=== PATIENT | female | born 1945 | race Caucasian/White ===

== ENCOUNTER 2022-09-26 18:56 | Emergency (ER) | payer MEDICARE ==
[2022-09-26] MEDS ORDERED: ACETAMINOPHEN 325 MG TABLET PO STA (19:10)
--- NOTE | 2022-09-26 19:21 | ED Fall/Injury ---
General Chief Complaint: Trauma-Non Activation Stated Complaint: FELL,R SIDE HIP,HEAD INJ Nursing Triage Note: Pt states she fell backward off her steps at home and hit the back of her head. Pt denies loc. Pt complaining of right upper leg pain Source: patient, family History of Present Illness Date Seen by Provider: September 26, 2022 Time Seen by Provider: 19:00 Initial Comments 77-year-old female presenting with her children to the emergency department. She states that around 1700 she had been carrying groceries up her deck stairs when she fell backward. She is lost her balance and she fell and hit the back of her head and her right thigh. She was complaining of pain to the back of her head as well as the right thigh. She denies losing consciousness with the fall. She states that she was stunned and had to lay on the ground for a few seconds until she could get her bearings. Then she crawled up the steps and then walked into the house. She did have nausea when she first fell. She denies having any nausea now and did not have any vomiting. She denies any change in her vision, numbness or weakness in her arms or legs. She does take Plavix since she has had heart attack and stent placement last year. She follows with Dr. Stanton at [facility] for her cardiology. Occurred: this evening (Around 1700) Severity: moderate Injuries/Pain Location: head (Swelling to the back of her head where she hit it when she fell), lower extremity (Swelling and bruising to the right lateral thigh where she had fallen) Context: lost balance Loss of Consciousness: no loss of consciousness Modifying Factors: Worse With Movement Associated Symptoms (Fall): No Abdominal Pain, No Chest Pain, No Confusion, No Dizziness; Headache (Occiput where she has swelling); No Lightheadedness, No Muscle Spasms; Nausea/Vomiting (Right after the fall), Neck Pain (Complains of chronic neck pain from arthritis and it feels more sore since she had fallen); No Ringing in Ears, No Seizures, No Shortness of Air, No Slurred Speech; Trouble Walking (Due to pain in her right thigh); No Vision Changes Allergies and Home Medications Allergies Coded Allergies: Sulfa (Sulfonamide Antibiotics) (Verified Allergy, Unknown, 09/26/22) Patient Home Medication List Home Medication List Reviewed: Yes Review of Systems Review of Systems Constitutional: No chills, No dizziness, No fever Eyes: Denies Blurred Vision, Denies Vision Changes Ears, Nose, Mouth, Throat: denies ear pain, denies ear discharge, denies nose pain, denies nose discharge, denies epistaxis, denies loose teeth Respiratory: No cough, No short of breath Cardiovascular: no symptoms reported Gastrointestinal: see HPI Genitourinary: No dysuria Musculoskeletal: see HPI Skin: see HPI Psychiatric/Neurological: See HPI Past [id number]-[id number] Hx Patient Social History Tobacco Use?: No Use of E-Cig and/or Vaping dev: No Substance use?: No Alcohol Use?: No Pt feels they are or have been: No Past Medical History Surgery/Hospitalization HX: Coronary artery disease with stent, hypertension, hyperlipidemia, GERD Surgeries: Yes Coronary Stent Cardiac: Yes Coronary Artery Disease, High Cholesterol, Hypertension Physical Exam Vital Signs Vital Signs - First Documented Capillary Refill : Less Than 3 Seconds Height, Weight, BMI Height: '" Weight: lbs. oz. kg; BMI Method: General Appearance: WD/WN, no apparent distress HEENT: PERRL/EOMI, normal ENT inspection, TMs normal, pharynx normal, other (Negative romero sign, negative raccoon sign, no CSF otorrhea, no CSF rhinorrhea, no hemotympanum) Neck: full range of motion, supple, tender lateral Cardiovascular: normal peripheral pulses Respiratory: chest non-tender Gastrointestinal: non tender, soft, no pulsatile mass Rectal: deferred Back: no CVA tenderness, no vertebral tenderness Extremities: normal range of motion, no calf tenderness, normal capillary refill, other (Hematoma to the right lateral thigh with tenderness to palpation.) 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, no motor/sensory deficits, alert, normal mood/affect, oriented x 3 Skin: warm/dry, ecchymosis (Right lateral thigh) Stafford Coma Score Best Eye Response: (4) Open Spontaneously Best Verbal Response: (5) Oriented Best Motor Response: (6) Obeys Commands Johan Total: 15 Progress/Results/Core Measures Results/Orders My Orders Orders - GAYLE NINA MD Ice: Apply To Affected Area (09/26/22 19:10) Femur 2 View Right (09/26/22 19:10) Ct Head/Cervical Spine Wo (09/26/22 19:10) Acetaminophen Tablet/Caplet (Tylenol T (09/26/22 19:10) Vital Signs/I&O 09/26/22 09/26/22 19:01 19:01 Pulse 97 97 Resp 18 18 B/P (MAP) 196/103 (134) 196/103 (134) Pulse Ox 97 97 O2 Delivery Room Air Room Air Blood Pressure Mean: 134 Progress Progress Note #1: Progress Note Potential diagnosis of hematoma to the thigh, occipital scalp hematoma, skull fracture, intracranial hemorrhage, femur fracture, contusion of thigh. Acetaminophen 650 mg p.o. x1 for her complaint of headache. Ice pack to her head and to the right thigh for swelling and bruising. CT scan of the head and cervical spine to evaluate for possible fractures or intracranial hemorrhage. X-ray of the right femur to look for fracture or dislocation. Progress Note #2: Time: 20:00 Progress Note On my personal interpretation and reviewed with the x-rays of the right femur and CT scan of the head and cervical spine I did not appreciate any acute fractures and or intracranial hemorrhage. She has some degenerative changes with arthritis. She had prior hardware from a total knee arthroplasty on the right. Hardware appears intact. 2011 I reviewed the radiologist reports on the CT scan of the head and cervical spine as well as the x-rays of the right femur. They also did not appreciate any acute fractures or intracranial hemorrhage. Patient reports improved pain after Tylenol and with ice packs. Counseled on follow-up and return precautions. Advised she could continue with the Tylenol as needed for pain 650 mg every 4-6 hours. She is due for her evening dose of Coreg so we will have her take that when she gets home. Her blood pressure was a little high here in the emergency department but she does not have any secondary symptoms of high blood pressure such as blurred vision, chest pain, generalized headache, numbness or tingling in her arms or legs. She only was having the localized headache at the site of hematoma on her occiput Diagnostic Imaging Diagonstic Imaging: Xray Plain Films/CT/US/NM/MRI: femur Comments [facility] [place], [place] NAME: KEENAN DORMANSuhas Wheeler [facility] REC#: [id number] PT STATUS: REG ER : 1945 PHYSICIAN: GAYLE NINA MD ADMIT DATE: 09/26/22/ER FS Signed Date of Exam:09/26/22 FEMUR 2 VIEW RIGHT INDICATION: Injured in fall backwards off steps at home, hit back of head. Patient denies loss of consciousness. Patient now has right leg pain. COMPARISONS: None: FINDINGS: AP and lateral views of the right femur show a previous right knee arthroplasty. There is some age-appropriate degenerative joint disease in the right hip. Otherwise, no evidence of acute fracture or acute subluxation seen. IMPRESSION: No fracture or subluxation seen in the right femur. There is some degenerative joint disease probably age-appropriate in the right hip. There is also previous right total knee arthroplasty noted. Dictated by: Dictated on workstation # [id number] Dict: 09/26/221941 Trans: 09/26/221955 [facility] [id number] Interpreted by: CULLEN SELLERS MD Electronically signed by: CULLEN SELLERS MD 09/26/221955 Reviewed: Reviewed by Me (I reviewed the radiologist report at 2011) Diagonstic Imaging: CT Plain Films/CT/US/NM/MRI: c-spine, head Comments [facility] [place] [place] NAME: DIANN DORMAN [facility] REC#: [id number] PT STATUS: REG ER : 1945 PHYSICIAN: GAYLE NINA MD ADMIT DATE: 09/26/22/ER FS Signed Date of Exam:09/26/22 CT HEAD/CERVICAL SPINE WO PROCEDURE: CT head and CT cervical spine without contrast. TECHNIQUE: Multiple contiguous axial images were obtained through the brain and cervical spine without the use of intravenous contrast. Sagittal and coronal reformations through the cervical spine were then performed. Auto Exposure Controls were utilized during the CT exam to meet ALARA standards for radiation dose reduction. INDICATION: Fall, pain. COMPARISON: None available. FINDINGS: Age-appropriate volume loss. No intracranial hemorrhage. No intracranial mass, mass effect, midline shift, herniation, hydrocephalus, or extra-axial fluid collection. Patchy regions of hypodensity are noted within the periventricular and subcortical white matter, most consistent with mild background chronic small vessel white matter ischemic disease. No CT evidence of an acute ischemic infarction. Bilateral ocular lenses are absent. Otherwise, the orbits are unremarkable. Mild background vascular calcifications. Minimal opacification of the left mastoid air cells. Otherwise, the paranasal sinuses are clear. The calvarium and extracalvarial soft tissues are unremarkable. Minimal anterolisthesis of C3 on C4 and C4 on C5 with minimal retrolisthesis of C5 on C6. Alignment of the atlantooccipital joint is well maintained. Significant endplate degenerative changes are present, particularly involving C5, C6, and C7. Severe disc space height loss at C5/C6, C6/C7, and C7/T1 with associated prominent anterior osteophyte formation. No evidence of a recent vertebral body compression deformity. 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 No acute fracture or dislocation. No destructive osseous process. Scattered facet joint degenerative changes and uncovertebral joint hypertrophy. There is resulting multilevel relatively high-grade bilateral neural foraminal stenosis with additional central canal stenosis. The paraspinal soft tissues are unremarkable. IMPRESSION: No acute intracranial abnormality with age-appropriate volume loss and mild background chronic small vessel white matter ischemic disease. No acute osseous abnormality within the cervical spine with moderate multilevel degenerative changes with multilevel low-grade anterolisthesis and retrolisthesis. Dictated by: Dictated on workstation # [id number] Dict: 09/26/221938 Trans: 09/26/221948 [facility] [id number] Interpreted by: MAGALI PARKINSON MD Electronically signed by: MAGALI PARKINSON MD 09/26/221948 Reviewed: Reviewed by Me (I reviewed the radiologist report at 2011) Departure Impression Primary Impression: Traumatic hematoma of occiput Qualified Codes: S00.83XA - Contusion of other part of head, initial encounter Additional Impressions: Fall (on) (from) other stairs and steps, initial encounter Traumatic hematoma of right thigh Qualified Codes: S70.11XA - Contusion of right thigh, initial encounter Closed head injury without loss of consciousness Qualified Codes: S09.90XA - Unspecified injury of head, initial encounter Disposition: 01 HOME, SELF-CARE Condition: Stable Departure-Patient Inst. Decision time for Depature: 20:18 Referrals: JEREMY JONES APRN (PCP/Family) Primary Care Physician Patient Instructions: HEMATOMA, Minor Contusion ED, Minor Head Injury, Adult ED, Preventing Falls ED Add. Discharge Instructions: Apply ice for 15 to 20 minutes every few hours as needed for bruising and swelling to the thigh and back of the head. May take acetaminophen 650 mg every 4-6 hours as needed for pain. Check back with your primary care provider for continued concerns. Try to stay well-hydrated and get plenty of rest to help in terms of the minor head injury. There was no bleeding or signs of skull fractures or neck fractures on the imaging. All discharge instructions reviewed with patient and/or family. Voiced understanding. GAYLE NINA MD September 26, 2022 19:21
--- NOTE | 2022-09-26 19:47 | Diagnostic Imaging Report ---
PROCEDURE: CT head and CT cervical spine without contrast. TECHNIQUE: Multiple contiguous axial images were obtained through the brain and cervical spine without the use of intravenous contrast. Sagittal and coronal reformations through the cervical spine were then performed. Auto Exposure Controls were utilized during the CT exam to meet ALARA standards for radiation dose reduction. INDICATION: Fall, pain. COMPARISON: None available. FINDINGS: Age-appropriate volume loss. No intracranial hemorrhage. No intracranial mass, mass effect, midline shift, herniation, hydrocephalus, or extra-axial fluid collection. Patchy regions of hypodensity are noted within the periventricular and subcortical white matter, most consistent with mild background chronic small vessel white matter ischemic disease. No CT evidence of an acute ischemic infarction. Bilateral ocular lenses are absent. Otherwise, the orbits are unremarkable. Mild background vascular calcifications. Minimal opacification of the left mastoid air cells. Otherwise, the paranasal sinuses are clear. The calvarium and extracalvarial soft tissues are unremarkable. Minimal anterolisthesis of C3 on C4 and C4 on C5 with minimal retrolisthesis of C5 on C6. Alignment of the atlantooccipital joint is well maintained. Significant endplate degenerative changes are present, particularly involving C5, C6, and C7. Severe disc space height loss at C5/C6, C6/C7, and C7/T1 with associated prominent anterior osteophyte formation. No evidence of a recent vertebral body compression deformity. 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 No acute fracture or dislocation. No destructive osseous process. Scattered facet joint degenerative changes and uncovertebral joint hypertrophy. There is resulting multilevel relatively high-grade bilateral neural foraminal stenosis with additional central canal stenosis. The paraspinal soft tissues are unremarkable. IMPRESSION: No acute intracranial abnormality with age-appropriate volume loss and mild background chronic small vessel white matter ischemic disease. No acute osseous abnormality within the cervical spine with moderate multilevel degenerative changes with multilevel low-grade anterolisthesis and retrolisthesis. Dictated by: Dictated on workstation # [id number]
--- NOTE | 2022-09-26 19:50 | Diagnostic Imaging Report ---
INDICATION: Injured in fall backwards off steps at home, hit back of head. Patient denies loss of consciousness. Patient now has right leg pain. COMPARISONS: None: FINDINGS: AP and lateral views of the right femur show a previous right knee arthroplasty. There is some age-appropriate degenerative joint disease in the right hip. Otherwise, no evidence of acute fracture or acute subluxation seen. IMPRESSION: No fracture or subluxation seen in the right femur. There is some degenerative joint disease probably age-appropriate in the right hip. There is also previous right total knee arthroplasty noted. Dictated by: Dictated on workstation # [id number]
[2022-09-26 20:39] VITALS: BP 173/89
== END 2022-09-26 20:40 | disposition home or self-care (01) ==
LOC: ER FS 18:58
DX: S09.90XA Unspecified injury of head, initial encounter (principal); S00.03XA Contusion of scalp, initial encounter; S70.11XA Contusion of right thigh, initial encounter; Z86.79 Personal history of other diseases of the circulatory system; Z95.5 Presence of coronary angioplasty implant and graft; Z79.02 Long term (current) use of antithrombotics/antiplatelets; Z28.310 Unvaccinated for COVID-19; W10.8XXA Fall (on) (from) other stairs and steps, initial encounter; W22.8XXA Striking against or struck by other objects, initial encounter; Y92.009 Unspecified place in unspecified non-institutional (private) residence as the place of occurrence of the external cause
CPT/HCPCS: 70450; 72125; 73552